=== PATIENT | female | born 1950 | race African-American/Black ===

== ENCOUNTER 2017-01-27 22:55 | Emergency (ER) | payer OTHER ==
[~2017-01-27] VITALS: Ht 172.7 cm; Wt 72.6 kg
[2017-01-28] MEDS ORDERED: MORPHINE SULFATE 4 MG/ML CPJ (NOT FOR IM USE) IV STA (00:42)
[2017-01-28] MEDS ORDERED: SODIUM CHLORIDE 0.9% 1,000 ML IV ONE (00:42)
[2017-01-28] MEDS ORDERED: ONDANSETRON HCL 4MG/2ML VIAL IV STA (00:42)
[2017-01-28 01:05] LABS: HEMATOCRIT. 45.4 % (36.0-48.0); MEAN CORPUSCULAR HEMOGLOBIN 25.2 pg (28.0-32.0); MEAN CORPUSCULAR VOLUME 76.4 fL (81.0-99.0); MEAN PLATELET VOLUME 9.3 fl (7.4-10.4); PLATELET 403 x1000/uL (130-400); RED BLOOD CELL COUNT 5.95 mill/uL (4.2-5.4); RED CELL DISTRIBUTION WIDTH 22.5 % (11.6-14.6)
[2017-01-28 01:12] LABS: CHLORIDE 105 mEq/L (98-107)
[2017-01-28 01:20] LABS: CARBON DIOXIDE 25 mEq/L (21-32); CREATINE KINASE 276 IU/L (26-192)
[2017-01-28] MEDS ORDERED: HYDROXYUREA 500MG CAPSULE PO ONE (03:45)
[2017-01-28] MEDS ORDERED: ATENOLOL 50 MG TABLET PO ONE (03:45)
[2017-01-28 04:10] VITALS: BP 148/81
[2017-01-28 05:05] LABS: PLATELET ESTIMATE NORMAL
== END 2017-01-28 05:21 | disposition home or self-care (01) ==
LOC: ER 23:13
DX: S82.292A Other fracture of shaft of left tibia, initial encounter for closed fracture (principal); I10 Essential (primary) hypertension; E11.9 Type 2 diabetes mellitus without complications; W22.8XXA Striking against or struck by other objects, initial encounter; Y93.89 Activity, other specified; Y92.89 Other specified places as the place of occurrence of the external cause; Y99.8 Other external cause status; Z88.0 Allergy status to penicillin; Z88.6 Allergy status to analgesic agent
CPT/HCPCS: 29505; 36415; 73562; 73590; 80048; 82550; 85025; 96361; 96374; 96375; 99285; J2270; J2405; J7030

== ENCOUNTER 2018-07-01 13:32 | Emergency (ER) | payer MEDICARE, OTHER ==
[~2018-07-01] VITALS: Ht 180.3 cm; Wt 73.5 kg
[2018-07-01] MEDS ORDERED: ATEN-42 PO (13:43)
[2018-07-01] MEDS ORDERED: TRAMADOL 50MG TABLET PO ONE (14:15)
[2018-07-01] MEDS ORDERED: LIDOCAINE 1%/EPI 1:100,000 10 ML VIAL IJ ONE (14:30)
[2018-07-01] MEDS ORDERED: LIDOCAINE HCL/EPINEPHRINE 1%-EPI 1:100,000 20 ML VIAL INFIL NR (15:00)
[2018-07-01 18:00] VITALS: BP 136/72
== END 2018-07-01 18:41 | disposition home or self-care (01) ==
LOC: ER 14:10
DX: S81.011A Laceration without foreign body, right knee, initial encounter (principal); S01.111A Laceration without foreign body of right eyelid and periocular area, initial encounter; S00.31XA Abrasion of nose, initial encounter; R07.81 Pleurodynia; W01.0XXA Fall on same level from slipping, tripping and stumbling without subsequent striking against object, initial encounter; Y93.89 Activity, other specified; Y92.89 Other specified places as the place of occurrence of the external cause; Y99.8 Other external cause status
CPT/HCPCS: 12011; 70450; 70486; 71045; 71101; 73560; 99284; J3490

== ENCOUNTER 2018-07-04 15:32 | Emergency (ER) | payer MEDICARE, OTHER ==
[~2018-07-04] VITALS: Ht 162.6 cm; Wt 60.0 kg
[~2018-07-04 15:32] MED LIST: ATEN-42 PO
[2018-07-04] MEDS ORDERED: TRAMADOL 50MG TABLET PO ONE (17:30)
[2018-07-04 18:36] LABS: BASOPHILS % 0.3 % (0.0-2.0); EOSINOPHILS % 0.2 % (0.0-5.0); HEMATOCRIT. 45.7 % (36.0-48.0); HEMOGLOBIN. 14.9 g/dL (12.0-16.0); LYMPHOCYTES % 9.4 % (20.0-50.0); MEAN CORPUSCULAR HEMOGLOBIN 27.6 pg (28.0-32.0); MEAN CORPUSCULAR VOLUME 84.9 fL (81.0-99.0); MEAN PLATELET VOLUME 10.1 fl (7.4-10.4); NEUTROPHILS % 84.1 % (40.0-76.0); PLATELET 555 x1000/uL (130-400); RED BLOOD CELL COUNT 5.39 mill/uL (4.2-5.4)
[2018-07-04 18:40] LABS: CHLORIDE 102 mEq/L (98-107)
[2018-07-04 20:08] LABS: CLARITY URINE CLEAR (CLEAR); COLOR URINE YELLOW (YELLOW); KETONES URINE NEGATIVE (NEGATIVE); LEUKOCYTE ESTERASE URINE TRACE (NEGATIVE); NITRITE URINE NEGATIVE (NEGATIVE); OCCULT BLOOD URINE NEGATIVE (NEGATIVE); PROTEIN URINE NEGATIVE (NEGATIVE); SPECIFIC GRAVITY URINE 1.013 (1.005-1.030)
[2018-07-04 22:45] VITALS: BP 125/60
== END 2018-07-04 23:08 | disposition short-term general hospital (02) ==
LOC: ER 15:32
DX: R53.1 Weakness (principal); I10 Essential (primary) hypertension; Z88.0 Allergy status to penicillin; Z88.6 Allergy status to analgesic agent; Z79.899 Other long term (current) drug therapy
CPT/HCPCS: 36415; 71045; 82962; 99285

== ENCOUNTER 2020-05-22 18:23 | Emergency (ER) | payer OTHER ==
[~2020-05-22] VITALS: Ht 177.8 cm; Wt 65.0 kg
[2020-05-22 21:30] LABS: BASOPHILS % 0.6 % (0.0-2.0); EOSINOPHILS % 0.7 % (0.0-5.0); HEMATOCRIT. 45.1 % (36.0-48.0); LYMPHOCYTES % 12.4 % (20.0-50.0); MEAN CORPUSCULAR HEMOGLOBIN 22.9 pg (28.0-32.0); MEAN CORPUSCULAR VOLUME 73.4 fL (81.0-99.0); MEAN PLATELET VOLUME 9.9 fl (7.4-10.4); MONOCYTES % 9.4 % (2.0-8.0); NEUTROPHILS % 76.9 % (40.0-76.0); PLATELET 607 x1000/uL (130-400); RED BLOOD CELL COUNT 6.14 mill/uL (4.2-5.4); RED CELL DISTRIBUTION WIDTH 18.1 % (11.6-14.6)
[2020-05-22] MEDS: BACITRACIN ZINC OINT UDPKT TOP ONE (21:30)
[2020-05-22 21:34] LABS: CLARITY URINE CLEAR (CLEAR); COLOR URINE YELLOW (YELLOW); KETONES URINE NEGATIVE (NEGATIVE); LEUKOCYTE ESTERASE URINE NEGATIVE (NEGATIVE); NITRITE URINE NEGATIVE (NEGATIVE); OCCULT BLOOD URINE NEGATIVE (NEGATIVE); PH URINE 7.5 (4.5-8.0); PROTEIN URINE NEGATIVE (NEGATIVE); SPECIFIC GRAVITY URINE 1.009 (1.005-1.030)
[2020-05-22 21:55] LABS: CHLORIDE 102 mEq/L (98-107)
[2020-05-23 00:14] VITALS: BP 148/84
== END 2020-05-23 00:23 | disposition home or self-care (01) ==
LOC: ER 18:33
DX: S30.810A Abrasion of lower back and pelvis, initial encounter (principal); L89.90 Pressure ulcer of unspecified site, unspecified stage; Z88.0 Allergy status to penicillin; Z88.8 Allergy status to other drugs, medicaments and biological substances; Z98.890 Other specified postprocedural states; W18.30XA Fall on same level, unspecified, initial encounter; Y93.89 Activity, other specified; Y92.89 Other specified places as the place of occurrence of the external cause; Y99.8 Other external cause status
CPT/HCPCS: 36415; 71045; 80053; 81003; 83880; 84484; 85025; 93005; 99285

== ENCOUNTER 2020-06-11 07:49 | Emergency (ER) | payer OTHER, MEDICAID ==
[~2020-06-11] VITALS: Ht 160 cm; Wt 52.0 kg
[2020-06-11 08:49] LABS: BASOPHILS % 0.4 % (0.0-2.0); EOSINOPHILS % 0.2 % (0.0-5.0); HEMATOCRIT. 48.5 % (36.0-48.0); HEMOGLOBIN. 15.7 g/dL (12.0-16.0); LYMPHOCYTES % 7.2 % (20.0-50.0); MEAN CORPUSCULAR HEMOGLOBIN 23.2 pg (28.0-32.0); MEAN CORPUSCULAR VOLUME 71.6 fL (81.0-99.0); MONOCYTES % 11.3 % (2.0-8.0); NEUTROPHILS % 80.9 % (40.0-76.0); PLATELET 543 x1000/uL (130-400); RED BLOOD CELL COUNT 6.78 mill/uL (4.2-5.4); RED CELL DISTRIBUTION WIDTH 17.6 % (11.6-14.6)
[2020-06-11 08:56] LABS: CHLORIDE 101 mEq/L (98-107)
[2020-06-11 09:06] LABS: INR 1.2; PROTHROMBIN TIME 12.9 sec (9.6-11.0)
[2020-06-11 10:36] LABS: CLARITY URINE CLEAR (CLEAR); COLOR URINE YELLOW (YELLOW); KETONES URINE NEGATIVE (NEGATIVE); LEUKOCYTE ESTERASE URINE NEGATIVE (NEGATIVE); NITRITE URINE NEGATIVE (NEGATIVE); OCCULT BLOOD URINE NEGATIVE (NEGATIVE); PH URINE 6.5 (4.5-8.0); PROTEIN URINE NEGATIVE (NEGATIVE); SPECIFIC GRAVITY URINE 1.019 (1.005-1.030)
[2020-06-11 12:23] VITALS: BP 140/80
== END 2020-06-11 14:35 | disposition short-term general hospital (02) ==
LOC: ER 07:49 → CANBEDREQ 15:48
DX: M25.512 Pain in left shoulder (principal); G35 Multiple sclerosis; R53.1 Weakness; R26.2 Difficulty in walking, not elsewhere classified; I10 Essential (primary) hypertension; M19.90 Unspecified osteoarthritis, unspecified site; Z88.0 Allergy status to penicillin; Z88.6 Allergy status to analgesic agent; W06.XXXA Fall from bed, initial encounter; Y93.89 Activity, other specified; Y92.013 Bedroom of single-family (private) house as the place of occurrence of the external cause
CPT/HCPCS: 36415; 71045; 80053; 81003; 85025; 93005; 93970; 99285

== ENCOUNTER 2020-09-28 00:38 | Inpatient (IN) | payer OTHER, MEDICAID ==
[~2020-09-28] VITALS: Ht 177.8 cm; Wt 57.2 kg
[2020-09-28] MEDS ORDERED: MORPHINE SULFATE 4 MG/ML CPJ (NOT FOR IM USE) IV STA (01:05)
[2020-09-28 01:44] LABS: CHLORIDE 98 mEq/L (98-107)
[2020-09-28 01:45] LABS: BASOPHILS % 0.2 % (0.0-2.0); EOSINOPHILS % 0.4 % (0.0-5.0); HEMATOCRIT. 41.3 % (36.0-48.0); HEMOGLOBIN. 13.4 g/dL (12.0-16.0); LYMPHOCYTES % 11.1 % (20.0-50.0); MEAN CORPUSCULAR HEMOGLOBIN 27.2 pg (28.0-32.0); MEAN CORPUSCULAR VOLUME 83.9 fL (81.0-99.0); MEAN PLATELET VOLUME 8.7 fl (7.4-10.4); MONOCYTES % 8.1 % (2.0-8.0); NEUTROPHILS % 80.2 % (40.0-76.0); PLATELET 426 x1000/uL (130-400); RED BLOOD CELL COUNT 4.92 mill/uL (4.2-5.4); RED CELL DISTRIBUTION WIDTH 23.9 % (11.6-14.6)
[2020-09-28] MEDS ORDERED: VANCOMYCIN 1 G PREMIX 200 ML IV ONE (02:00)
[2020-09-28] MEDS ORDERED: MEROPENEM 1,000 MG in SODIUM CHLORIDE 0.9% 100 ML IV ONE (02:00)
[2020-09-28] MEDS ORDERED: SODIUM CHLORIDE 0.9% 1000ML BAG (SEPSIS BOLUS) IV ONE (02:00)
[2020-09-28 03:12] LABS: PLATELET ESTIMATE SLIGHTLY INCREASED
[2020-09-28 03:18] LABS: INR 1.2; PROTHROMBIN TIME 12.3 sec (9.6-11.0)
[2020-09-28] MEDS ORDERED: DIPHENHYDRAMINE 25MG CAPSULE PO ONE (04:15)
[2020-09-28 08:19] LABS: CLARITY URINE CLOUDY (CLEAR); COLOR URINE ORANGE (YELLOW); KETONES URINE NEGATIVE (NEGATIVE); LEUKOCYTE ESTERASE URINE TRACE (NEGATIVE); NITRITE URINE NEGATIVE (NEGATIVE); OCCULT BLOOD URINE NEGATIVE (NEGATIVE); PROTEIN URINE NEGATIVE (NEGATIVE)
[2020-09-28 11:50] VITALS: BP 123/57
[2020-09-28 13:45] VITALS: BP 123/57
[2020-09-28 16:00] VITALS: BP 109/58
[2020-09-28] MEDS ORDERED: LORAZEPAM 0.5MG TABLET PO PRN (16:00)
[2020-09-28] MEDS ORDERED: MAGNESIUM/ALUMINUM HYDROXIDE/SIMETHICONE 30ML UDC PO PRN (16:00)
[2020-09-28] MEDS ORDERED: DIPHENHYDRAMINE 50MG/ML VIAL IV PRN (16:00)
[2020-09-28] MEDS ORDERED: CLONIDINE 0.1MG TABLET PO PRN (16:00)
[2020-09-28] MEDS ORDERED: ONDANSETRON HCL 4MG/2ML INJ IV PRN (16:00)
[2020-09-28] MEDS ORDERED: ACETAMINOPHEN 325MG TABLET PO PRN (16:00)
[2020-09-28] MEDS ORDERED: ENOXAPARIN 40MG/0.4ML SYR SUBCUT SCH (16:00)
[2020-09-28] MEDS ORDERED: ZOLPIDEM TARTRATE 5MG TABLET PO PRN (16:00)
[2020-09-28] MEDS ORDERED: ACETAMINOPHEN WITH CODEINE 300/30MG TABLET PO PRN (16:30)
[2020-09-28] MEDS: DULOXETINE HCL 30MG DR CAPSULE PO SCH (18:00)
[2020-09-28] MEDS: ENOXAPARIN 30MG/0.3ML SYR SUBCUT SCH (18:01)
[2020-09-28] MEDS: BACLOFEN 10MG TABLET PO SCH (21:56)
[2020-09-28] MEDS: GABAPENTIN 100MG CAPSULE PO SCH (21:56)
[2020-09-28] MEDS: METOPROLOL TARTRATE 25MG TABLET PO SCH (21:57)
[2020-09-28] MEDS: KETOROLAC 30MG/ML VIAL IV PRN (21:57)
[2020-09-28] MEDS: SODIUM CHLORIDE 0.9% INJ 3ML FLUSH IVF SCH (21:58)
[2020-09-28] MEDS ORDERED: VANCOMYCIN 750 MG PREMIX 150 ML IV SCH (22:00)
[2020-09-29] VITALS: BP 121/65
[2020-09-29 04:00] VITALS: BP 121/75
[2020-09-29 06:08] LABS: BASOPHILS % 0.2 % (0.0-2.0); EOSINOPHILS % 0.7 % (0.0-5.0); HEMATOCRIT. 35.1 % (36.0-48.0); HEMOGLOBIN. 11.6 g/dL (12.0-16.0); LYMPHOCYTES % 15.9 % (20.0-50.0); MEAN CORPUSCULAR HEMOGLOBIN 28.3 pg (28.0-32.0); MEAN CORPUSCULAR VOLUME 85.7 fL (81.0-99.0); MEAN PLATELET VOLUME 9.1 fl (7.4-10.4); MONOCYTES % 14.4 % (2.0-8.0); NEUTROPHILS % 68.8 % (40.0-76.0); PLATELET 378 x1000/uL (130-400); RED CELL DISTRIBUTION WIDTH 23.6 % (11.6-14.6)
[2020-09-29] MEDS: SODIUM CHLORIDE 0.9% INJ 3ML FLUSH IVF SCH ×3 (06:22→21:04)
[2020-09-29] MEDS: GABAPENTIN 100MG CAPSULE PO SCH ×3 (06:22→21:03)
[2020-09-29] MEDS: BACLOFEN 10MG TABLET PO SCH ×3 (06:22→21:03)
[2020-09-29 07:32] LABS: CHLORIDE 98 mEq/L (98-107)
[2020-09-29 07:39] LABS: PHOSPHORUS 3.6 mg/dL (2.5-4.9)
[2020-09-29] MEDS: METOPROLOL TARTRATE 25MG TABLET PO SCH ×2 (07:47→21:05)
[2020-09-29] MEDS: ACETAMINOPHEN 325MG TABLET PO PRN ×2 (07:47→14:08)
[2020-09-29] MEDS: DULOXETINE HCL 30MG DR CAPSULE PO SCH (07:47)
[2020-09-29 08:08] VITALS: BP 120/70
[2020-09-29 12:10] VITALS: BP 117/60
[2020-09-29 16:16] VITALS: BP 118/60
[2020-09-29] MEDS: VANCOMYCIN 1 G PREMIX 200 ML IV SCH (16:54)
[2020-09-29] MEDS: ENOXAPARIN 30MG/0.3ML SYR SUBCUT SCH (16:54)
[2020-09-29 20:00] VITALS: BP 112/65
[2020-09-29] MEDS: KETOROLAC 30MG/ML VIAL IV PRN (21:03)
[2020-09-30] VITALS: BP 106/66
[2020-09-30 04:00] VITALS: BP 147/72
[2020-09-30] MEDS: BACLOFEN 10MG TABLET PO SCH ×3 (06:26→21:48)
[2020-09-30] MEDS: GABAPENTIN 100MG CAPSULE PO SCH ×3 (06:26→21:48)
[2020-09-30] MEDS: SODIUM CHLORIDE 0.9% INJ 3ML FLUSH IVF SCH ×3 (06:27→21:49)
[2020-09-30 07:17] LABS: CHLORIDE 99 mEq/L (98-107)
[2020-09-30 08:00] VITALS: BP 123/64
[2020-09-30] MEDS: VANCOMYCIN 1 G PREMIX 200 ML IV SCH ×2 (09:50→21:49)
[2020-09-30] MEDS: METOPROLOL TARTRATE 25MG TABLET PO SCH ×2 (09:50→21:48)
[2020-09-30] MEDS: DULOXETINE HCL 30MG DR CAPSULE PO SCH (09:50)
[2020-09-30] MEDS: KETOROLAC 30MG/ML VIAL IV PRN ×2 (12:15→19:09)
[2020-09-30 17:07] VITALS: BP 103/55
[2020-09-30] MEDS: ENOXAPARIN 30MG/0.3ML SYR SUBCUT SCH (17:30)
[2020-09-30 20:00] VITALS: BP 115/75
[2020-10-01] VITALS: BP 107/70
[2020-10-01 04:00] VITALS: BP 134/84
[2020-10-01] MEDS: BACLOFEN 10MG TABLET PO SCH ×3 (05:49→20:53)
[2020-10-01] MEDS: SODIUM CHLORIDE 0.9% INJ 3ML FLUSH IVF SCH ×3 (05:49→20:54)
[2020-10-01] MEDS: GABAPENTIN 100MG CAPSULE PO SCH ×3 (05:49→20:53)
[2020-10-01 08:00] VITALS: BP 145/85
[2020-10-01] MEDS: VANCOMYCIN 1 G PREMIX 200 ML IV SCH ×2 (09:45→20:54)
[2020-10-01] MEDS: METOPROLOL TARTRATE 25MG TABLET PO SCH ×2 (09:45→20:53)
[2020-10-01] MEDS: DULOXETINE HCL 30MG DR CAPSULE PO SCH (09:45)
[2020-10-01 12:00] VITALS: BP 134/68
[2020-10-01 16:00] VITALS: BP 112/60
[2020-10-01] MEDS ORDERED: DIATR MEGLU/DIATRIZOATE SOLN 30ML PO NR (16:15)
[2020-10-01] MEDS: ENOXAPARIN 30MG/0.3ML SYR SUBCUT SCH (16:31)
[2020-10-01] MEDS ORDERED: CEFTRIAXONE 1 G PREMIX 50 ML IV SCH (17:00)
[2020-10-01] MEDS ORDERED: CEFTRIAXONE 1,000 MG in DEXTROSE 5% WATER 50 ML IV SCH (18:00)
[2020-10-01 20:00] VITALS: BP 136/70
[2020-10-01] MEDS: METRONIDAZOLE 500MG TABLET PO SCH ×2 (20:53→22:00)
[2020-10-01] MEDS ORDERED: IOHEXOL-300 100 ML BOTTLE ONE (22:01)
[2020-10-02] VITALS: BP 110/63
[2020-10-02 04:00] VITALS: BP 136/76
[2020-10-02] MEDS: SODIUM CHLORIDE 0.9% INJ 3ML FLUSH IVF SCH ×2 (05:15→13:15)
[2020-10-02] MEDS: METRONIDAZOLE 500MG TABLET PO SCH ×2 (05:15→13:15)
[2020-10-02] MEDS: BACLOFEN 10MG TABLET PO SCH ×2 (05:15→13:15)
[2020-10-02] MEDS: GABAPENTIN 100MG CAPSULE PO SCH ×2 (05:15→13:15)
[2020-10-02 07:28] LABS: CHLORIDE 100 mEq/L (98-107)
[2020-10-02 08:00] VITALS: BP 100/61
[2020-10-02] MEDS: METOPROLOL TARTRATE 25MG TABLET PO SCH (09:00)
[2020-10-02] MEDS: DULOXETINE HCL 30MG DR CAPSULE PO SCH (09:31)
[2020-10-02] MEDS: VANCOMYCIN 1 G PREMIX 200 ML IV SCH (09:32)
[2020-10-02 12:00] VITALS: BP 117/69
[2020-10-02 16:00] VITALS: BP 131/82
[2020-10-02] MEDS ORDERED: METR500T PO (17:26)
[2020-10-02 17:28] VITALS: BP 131/82
== END 2020-10-02 19:00 | disposition short-term general hospital (02) | DRG 871 ==
LOC: ER 00:38 → 6WST 05:15 → EDBEDREQ 05:20 → EDBEDREQSVC 05:20 → EDBEDREQTM 05:20 → ENRESERV 10:03
PROVIDERS: ADMIT Internal Medicine; ATTEND Internal Medicine
DX: A41.9 Sepsis, unspecified organism (principal); L89.143 Pressure ulcer of left lower back, stage 3; L89.323 Pressure ulcer of left buttock, stage 3; E46 Unspecified protein-calorie malnutrition; E87.1 Hypo-osmolality and hyponatremia; G82.20 Paraplegia, unspecified; Z68.1 Body mass index [BMI] 19.9 or less, adult; G35 Multiple sclerosis; G62.9 Polyneuropathy, unspecified; I10 Essential (primary) hypertension; R53.81 Other malaise; M19.90 Unspecified osteoarthritis, unspecified site; N31.9 Neuromuscular dysfunction of bladder, unspecified; L89.526 Pressure-induced deep tissue damage of left ankle; F31.9 Bipolar disorder, unspecified; M79.605 Pain in left leg; M79.604 Pain in right leg; Z88.0 Allergy status to penicillin; Z88.6 Allergy status to analgesic agent; Z74.01 Bed confinement status; Z20.822 Contact with and (suspected) exposure to COVID-19; B96.7 Clostridium perfringens [C. perfringens] as the cause of diseases classified elsewhere
CPT/HCPCS: 36415; 74177; 80048; 80053; 80202; 81003; 82040; 82962; 83605; 83735; 84100; 84134; 84145; 84484; 85025; 87076; 87426; 93005; 93970; 99291; J0696; J1650; J1885; J2185; J2270; J2405; J3370; J7030; J7050; J7060; Q0163; Q9963; Q9967; A4315

== ENCOUNTER 2020-10-13 21:38 | Emergency (ER) | payer OTHER, MEDICAID ==
[~2020-10-13] VITALS: Ht 160 cm; Wt 61.0 kg
[~2020-10-13 21:38] MED LIST changes: +METR500T PO
[2020-10-13 23:54] LABS: BASOPHILS % 0.5 % (0.0-2.0); EOSINOPHILS % 0.3 % (0.0-5.0); HEMATOCRIT. 40.6 % (36.0-48.0); HEMOGLOBIN. 13.5 g/dL (12.0-16.0); LYMPHOCYTES % 8.9 % (20.0-50.0); MEAN CORPUSCULAR HEMOGLOBIN 28.8 pg (28.0-32.0); MEAN CORPUSCULAR VOLUME 86.6 fL (81.0-99.0); MEAN PLATELET VOLUME 8.7 fl (7.4-10.4); MONOCYTES % 10.4 % (2.0-8.0); NEUTROPHILS % 79.9 % (40.0-76.0); PLATELET 643 x1000/uL (130-400); RED BLOOD CELL COUNT 4.69 mill/uL (4.2-5.4); RED CELL DISTRIBUTION WIDTH 19.3 % (11.6-14.6)
[2020-10-13 23:55] LABS: CHLORIDE 99 mEq/L (98-107)
[2020-10-13 23:57] LABS: INR 1.2; PROTHROMBIN TIME 12.9 sec (9.6-11.0)
[2020-10-14] MEDS ORDERED: HYDROCODONE/ACETAMINOPHEN 5/325MG TABLET PO ONE
[2020-10-14] MEDS ORDERED: GABAPENTIN 300MG CAPSULE PO ONE
[2020-10-14] MEDS ORDERED: DIPHENHYDRAMINE 25MG CAPSULE PO ONE
[2020-10-14] MEDS ORDERED: VANCOMYCIN 1 G PREMIX 200 ML IV NR (00:30)
[2020-10-14] MEDS ORDERED: AZTREONAM 1 G in DEXTROSE 5% WATER 50 ML IV SCH (01:00)
[2020-10-14 02:40] LABS: CLARITY URINE CLEAR (CLEAR); COLOR URINE YELLOW (YELLOW); KETONES URINE NEGATIVE (NEGATIVE); LEUKOCYTE ESTERASE URINE TRACE (NEGATIVE); NITRITE URINE NEGATIVE (NEGATIVE); OCCULT BLOOD URINE NEGATIVE (NEGATIVE); PH URINE 6.5 (4.5-8.0); PROTEIN URINE TRACE (NEGATIVE); SPECIFIC GRAVITY URINE 1.016 (1.005-1.030)
[2020-10-14 03:20] VITALS: BP 124/72
== END 2020-10-14 03:45 | disposition short-term general hospital (02) ==
LOC: ER 21:38 → CANBEDREQ 10-14 07:25
DX: L89.142 Pressure ulcer of left lower back, stage 2 (principal); L89.132 Pressure ulcer of right lower back, stage 2; L89.143 Pressure ulcer of left lower back, stage 3; L89.133 Pressure ulcer of right lower back, stage 3; L89.112 Pressure ulcer of right upper back, stage 2; L89.113 Pressure ulcer of right upper back, stage 3; R62.7 Adult failure to thrive; Z68.23 Body mass index [BMI] 23.0-23.9, adult; Z88.0 Allergy status to penicillin; Z88.6 Allergy status to analgesic agent; Z98.890 Other specified postprocedural states
CPT/HCPCS: 36415; 71045; 80053; 81003; 83605; 84145; 84484; 85025; 85610; 87040; 87086; 93005; 96365; 96367; 99285; J3370; J3490; J7060